=== PATIENT | female | born 2000 ===

== ENCOUNTER 2019-11-12 13:45 | Day surgery (SDC) | payer SELFPAY ==
[~2019-11-12 13:45] MED LIST: LIDOCAINE 2% 100MG/5ML SDV (FOR ANES.) As Ordered ONE; MIDAZOLAM INJ 2MG/2ML VIAL (J2250 PER 1MG) As Ordered ONE; ONDANSETRON 4MG/2ML VIAL As Ordered ONE; fentaNYL 100 MCG/2 ML INJECTION (J3010) As Ordered ONE; propofoL 200 MG/20 ML VIAL As Ordered ONE
[2019-11-12] MEDS ORDERED: LIDOCAINE 2% 5ML JELLY UROJET As Ordered ONE (14:01)
[2019-11-12] MEDS ORDERED: dexameTHASONE 4 MG/ML 1ML VIAL (J1100 PER 1MG) As Ordered ONE (14:29)
[2019-11-12] MEDS ORDERED: oxyCODONE 5MG TAB As Ordered ONE (16:05)
[2019-11-12] MEDS ORDERED: CIPROFLOXACIN 500MG TABLET As Ordered ONE (16:09)
--- NOTE | 2020-01-13 10:25 | RO ---
DATE OF OPERATION: 11/12/2019 PREOPERATIVE DIAGNOSIS: Kidney stones. POSTOPERATIVE DIAGNOSIS: Kidney stones. PROCEDURE: Cystoscopy, removal of bilateral ureteral stents. SURGEON: Jovani Palacio MD [employer] RO[employer]ER: None. ANESTHESIA: MAC. OPERATIVE INDICATIONS: This is a 18-year-old female who recently underwent bilateral ureteroscopy, treatment of kidney stones, and ureteral stent placement. She is taken to the operating today to remove her stents. DESCRIPTION OF PROCEDURE: The patient was brought to the operating room and MAC anesthesia was administered. Prophylactic antibiotics were infused. She was then placed in the dorsolithotomy position, prepped and draped in the usual sterile fashion. The rigid cystoscope was inserted into the urethral meatus and advanced to the bladder. Once inside the bladder, the previously placed ureteral stents were seen. The left ureteral stent was then grasped and withdraw from the left collecting system intact. The scope was then re-introduced and then the right stent was then grasped and withdrawn intact from the right collecting system. The bladder was emptied of all fluids and this marked the conclusion of the procedure. The patient was awakened from anesthesia and transferred to the recovery room in stable condition. ESTIMATED BLOOD LOSS: 5 mL. COMPLICATIONS: None. SPECIMEN: None. PLAN: The patient will be scheduled to follow-up in our clinic in approximately six months for kidney stone follow-up. We will get a KUB prior to that appointment. GARIMA
== END 2019-11-12 16:20 | disposition home or self-care (01) ==
LOC: M SDC 13:45
PROVIDERS: ATTEND Urology
DX: N20.0 Calculus of kidney (principal); J45.909 Unspecified asthma, uncomplicated; F41.9 Anxiety disorder, unspecified; F17.290 Nicotine dependence, other tobacco product, uncomplicated; F12.10 Cannabis abuse, uncomplicated
CPT/HCPCS: 52310; J1100; J2250; J2405; J3010